=== PATIENT | female | born 1955 | race Caucasian/White ===

== ENCOUNTER 2018-05-25 15:07 | Emergency (ER) | payer OTHER ==
[~2018-05-25] VITALS: Ht 147.3 cm; Wt 69.8 kg
[2018-05-25 15:16] VITALS: TEMP 36.8; Ht 147.3 cm; Wt 69.8 kg
--- NOTE | 2018-05-25 15:29 | EMERGENCY ROOM VISIT NOTE ---
History Report prepared by Kayla: Logan Haywood Under the Supervision of: Dr. Blake Vaughan M.D. First contact with patient: 15:12 Chief Complaint: FALL Stated Complaint: FALL/ R SHOULDER, ARM PAIN History of Present Illness The patient is a 62 year old white female with a past history of HTN, acid reflux, and high cholesterol for which she takes medications as well as ASA who presents to the Emergency Room with complaints of a fall x1 hour ago causing right shoulder, neck, and arm pain. The patient states she was doing a tour of [employer] when her legs buckled and she fell. She states fell onto her right side against the stone wall. She states she has had a dull-aching pain to her right arm, shoulder, and neck since. She denies hitting her head or having LOC.The patient states she is left-handed. The patient states she is a former smoker, but quit x10 years ago.The patient notes she last ate at 1300. Source of History: patient Onset: x1 hour Position: shoulder (right), arm (right) Symptom Intensity: moderate Quality: ache Timing: constant Modifying Factors (Worsening): movement Modifying Factors (Relieving): rest Associated Symptoms: + neck pain, No LOC, No chest pain, No SOB, No back pain Review of Systems See HPI for pertinent positives and negatives. A total of ten systems were reviewed and were otherwise negative. Respiratory: No shortness of breath Cardiovascular: No chest pain Musculoskeletal: + problem reported (right neck, shoulder, and arm pain) Neurologic: + problem reported (no LOC) Past Medical & Surgical Medical Problems: (1) Acid reflux (2) High cholesterol (3) HTN (hypertension) Family History Patient reports no known family medical history. Social History Smoking Status: Former Smoker Alcohol Use: none Drug Use: none Marital Status: Housing Status: lives with significant other Current/Historical Medications Scheduled Ascorbic Acid (Vitamin C), 1 TAB PO DAILY Aspirin (Aspirin Ec), 81 MG PO DAILY Atorvastatin (Lipitor), 1 TAB PO DAILY Cholecalciferol (Vitamin D3), 1 TAB PO DAILY Ferrous Sulfate (Ferrous Sulfate), 325 MG PO DAILY Multiple Vitamins W/ Minerals (Centrum Silver Adult 50+), 1 TAB PO DAILY [Unknown BP Med], 1 TAB PO DAILY [Unknown Reflux Med], 1 TAB PO DAILY Scheduled PRN Albuterol Hfa (Ventolin Hfa), 2 PUFFS INH Q6H PRN for SOB/Wheezing Oxycodone/Acetaminophen 5MG/325MG (Percocet 5MG/325MG), 1 TAB PO Q4H PRN for Pain Allergies Coded Allergies: Morphine (Verified Allergy, Severe, Swelling of tongue, 05/25/18) Physical Exam Vital Signs Date Time Temp Pulse Resp B/P (MAP) Pulse Ox O2 Delivery O2 Flow Rate FiO2 05/25/18 16:44 84 18 140/66 94 Room Air 05/25/18 15:16 36.8 84 18 154/74 95 Room Air Physical Exam GENERAL: Awake, alert, well-appearing, NAD HENT: Normocephalic, atraumatic. EYES: Normal conjunctiva. Sclera non-icteric. PERRL. No anisocoria. NECK: No cervical midline TTP. Supple. No nuchal rigidity. FROM. RESPIRATORY: CTAB, no rhonchi, wheezing, crackles CARDIAC: RRR, no MRG ABDOMEN: Soft, NTND, BS+ MSK: Right clavicle intact. Pain to the right shoulder, humerous, and elbow. No pain to the right forearm, wrist, or hand. NVI distally M/U/R nerves. Hip intact. NEURO: GCS 15, CN 2-12 intact, moves all 4s on command SKIN: No rash or jaundice noted. Medical Decision & Procedures ER Provider Diagnostic Interpretation: Radiology results as stated below per my review and radiologist interpretation: SINGLE VIEW CHEST CLINICAL HISTORY: Fall. FINDINGS: A PA chest radiograph is obtained. No prior studies are available for comparison at the time of dictation. The heart appears mildly enlarged and there is atherosclerotic calcification of the thoracic aorta. The pulmonary vasculature is noncongested. There is bibasilar atelectasis. No airspace consolidation or large pleural effusion is identified. No pneumothorax is seen. The skeletal structures are osteopenic. The bony thorax is grossly intact. Degenerative change and scoliosis are noted in the thoracic spine. IMPRESSION: Mild cardiac enlargement with no acute cardiopulmonary abnormality. RIGHT ELBOW 2 VIEWS CLINICAL HISTORY: Fall with right arm injury. FINDINGS: PA and lateral views of the right elbow are obtained. No prior studies are available for comparison at the time of dictation. The skeletal structures are osteopenic. There is no radiographic evidence of right elbow fracture. The joint spaces are maintained. No joint effusion is identified. Degenerative spurring is noted along the medial joint space. Small enthesophytes arise from the humeral epicondyles. The overlying soft tissues are within normal limits. IMPRESSION: There is no radiographic evidence of right elbow fracture. RIGHT SHOULDER 3 VIEWS; RIGHT HUMERUS 2 VIEWS CLINICAL HISTORY: Fall with right arm injury. FINDINGS: 3 views of the right shoulder with AP and lateral views of the right humerus are obtained. No prior studies are available for comparison at the time of dictation. The skeletal structures are osteopenic. There is an impacted fracture of the right humeral neck which extends through the humeral head. There are small distracted fragments and overlying soft tissue edema. The remainder of the humerus is intact. No additional fracture is seen at the shoulder joint. The glenohumeral articulation is preserved. Productive degenerative change is noted at the acromioclavicular joint. The elbow joint is grossly maintained. The visualized right lung parenchyma appears clear. IMPRESSION: 1. There is an impacted fracture of the right humeral neck which extends through the humeral head as above. 2. The remainder of the humerus appears intact. 3. No additional fracture is identified at the shoulder joint. RIGHT SHOULDER 3 VIEWS; RIGHT HUMERUS 2 VIEWS CLINICAL HISTORY: Fall with right arm injury. FINDINGS: 3 views of the right shoulder with AP and lateral views of the right humerus are obtained. No prior studies are available for comparison at the time of dictation. The skeletal structures are osteopenic. There is an impacted fracture of the right humeral neck which extends through the humeral head. There are small distracted fragments and overlying soft tissue edema. The remainder of the humerus is intact. No additional fracture is seen at the shoulder joint. The glenohumeral articulation is preserved. Productive degenerative change is noted at the acromioclavicular joint. The elbow joint is grossly maintained. The visualized right lung parenchyma appears clear. IMPRESSION: 1. There is an impacted fracture of the right humeral neck which extends through the humeral head as above. 2. The remainder of the humerus appears intact. 3. No additional fracture is identified at the shoulder joint. Medications Administered Medications (Trade) Dose Ordered Sig/Heather Route Start Time Stop Time Status Last Admin Dose Admin Fentanyl Citrate (Fentanyl Inj) 75 mcg NOW ONCE IV 05/25/18 15:30 05/25/18 15:33 DC 05/25/18 15:44 75 MCG Acetaminophen (Tylenol Tab) 650 mg NOW STAT PO 05/25/18 15:30 05/25/18 15:33 DC 05/25/18 15:44 650 MG Oxycodone/ Acetaminophen (Percocet 5-325mg Tab) 1 tab NOW STAT PO 05/25/18 17:11 05/25/18 17:12 DC 05/25/18 17:23 1 TAB Oxycodone/ Acetaminophen (Percocet 5/ 325MG Home Pack) 1 homepack UD ONCE PO 05/25/18 17:15 05/25/18 17:16 DC 05/25/18 17:15 1 HOMEPACK Ibuprofen (Advil Tab) 400 mg NOW STAT PO 05/25/18 17:11 05/25/18 17:12 DC 05/25/18 17:22 400 MG Medical Decision Nursing notes reviewed. Ancillary studies and prior records reviewed. The patient is a 62 year old white female with a past history of HTN, acid reflux, and high cholesterol for which she takes medications as well as ASA who presents to the Emergency Room with complaints of a fall x1 hour ago causing right shoulder, neck, and arm pain. Differential diagnosis: Etiologies such as fracture, dislocation, neurovascular compromise, compartment syndrome, soft tissue injury, as well as others were entertained. Patient was seen and evaluated the bedside. The patient does present status post fall. The patient had been dependence [facility] from the [facility] where she had a mechanical fall and fell onto her right shoulder. The patient did have pain thereafter. She does take a baby aspirin but does not take any of the blood thinning medications. Patient did not strike her head or neck and denies any numbness tingling or weakness. The patient did not have any LOC. Patient does have significant right upper extremity pain. She does have reduced range of motion secondary to pain but she is neurovascularly intact distally. Patient did have plain films completed and the patient was given medications for pain control. Patient does have an impacted humeral head fracture. I did discuss with the patient and family member that these are likely treated conservatively with follow-up with her PCP and orthopedist as needed. Patient was given additional pain medication for home and was told to follow-up with her PCP. The patient does have a PCP follow-up tomorrow. Patient was placed in a sling. I did speak with the telephonic nurse case manager in order to have her imaging placed on a disc for her to take to her appointment for further review. Patient was given strict follow-up, discharge, and return precautions. All questions were answered. Patient was deemed suitable for outpatient follow-up at this time. Patient agreed with the plan of care and was safely discharged home. Medication Reconcilliation Current Medication List: was personally reviewed by me Blood Pressure Screening Patient's blood pressure: Elevated blood pressure Blood pressure disposition: Referred to PCP Impression Primary Impression: Humeral head fracture Additional Impressions: Fall Arm pain Scribe Attestation The scribe's documentation has been prepared under my direction and personally reviewed by me in its entirety. I confirm that the note above accurately reflects all work, treatment, procedures, and medical decision making performed by me. Departure Information Dispostion Home / Self-Care Prescriptions Oxycodone/Acetaminophen 5MG/325MG (PERCOCET 5MG/325MG) Tab 1 TAB PO Q4H Y for Pain, #20 TAB Prov: Blake Vaughan M.D. 05/25/18 Patient Instructions ED Sling, Humerus Fx, My [facility] Additional Instructions Please return to the emergency department if you have worsening or recurrent symptoms not amenable to at-home treatment. Please call for a follow-up appointment with her primary care physician. Please take your medications as prescribed. If you have other concerns and/or complaints please feel free to also call your primary care physician's office or return the ED for further evaluation, management, and treatment. You were found to have an elevated blood pressure today (>120 sytolic or >90 diastolic). Per medicare guidelines, you need to follow up with this blood pressure screening with your Primary Care Physician (PCP). For a new PCP call [phone]. You received narcotic or benzodiazepene medication while in the emergency room today. This is an addictive medication that may cause drowziness as well as constipation. Do not drive, operate heavy machinery, or drink alcohol under the influence of this medication. You may take 400 mg Ibuprofen every 6 hours as needed for pain/fever with food unless told by your physician not to take NSAIDs. You may take tylenol 650 mg every 6 hours as needed for pain/fever unless told by your physician to not take it or have liver problems. You may take motrin and tylenol separately or at the same time. Take your medications as prescribed. If you still have discomfort you may take the narcotic medication. Please be advised that these medications are habit forming, can make you sleepy, and can cause breathing issues. Do not use if you require your full attention. Take only as prescribed. Please keep your arm in a sling for comfort and follow-up with your PCP and/or orthopedist as needed. You have been examined and treated today on an emergency basis only. This is not a substitute for, or an effort to provide, complete comprehensive medical care. It is impossible to recognize and treat all injuries or illnesses in a single emergency department visit. It is therefore important that you follow up closely with [facility], your PCP, and/or your specialist(s). Call as soon as possible for an appointment. Thank you for your time and consideration. I look forward to speaking with you again soon. Please don't hesitate to call us if you have any questions. Problem Qualifiers Primary Impression: Humeral head fracture Encounter type: initial encounter Fracture type: closed Laterality: right Qualified Codes: S42.291A - Other displaced fracture of upper end of right humerus, initial encounter for closed fracture Additional Impressions: Fall Encounter type: initial encounter Qualified Codes: W19.XXXA - Unspecified fall, initial encounter Arm pain Laterality: right Qualified Codes: M79.601 - Pain in right arm
[2018-05-25] MEDS ORDERED: ACETAMINOPHEN 325 MG TAB PO STA (15:30)
[2018-05-25] MEDS ORDERED: FENTANYL CITRATE INJ 50 MCG/1 ML 2 ML VIAL IV ONE (15:30)
[2018-05-25] MEDS ORDERED: [UNRECOGNIZED DRUG - REMARK] PO (16:21)
[2018-05-25] MEDS ORDERED: VNTHFA/IN INH (16:21)
[2018-05-25] MEDS ORDERED: ATOR10TA82 PO (16:21)
[2018-05-25] MEDS ORDERED: ASPI81TA28 PO (16:21)
[2018-05-25] MEDS ORDERED: FERR325T5 PO (16:21)
[2018-05-25] MEDS ORDERED: CHOL1000 PO (16:21)
[2018-05-25] MEDS ORDERED: MULT-845 PO (16:21)
[2018-05-25] MEDS ORDERED: ASCO500T3 PO (16:21)
[2018-05-25] MEDS ORDERED: [UNRECOGNIZED DRUG - REMARK] PO (16:22)
--- NOTE | 2018-05-25 16:37 | DIAGNOSTIC IMAGING REPORT ---
RIGHT SHOULDER 3 VIEWS; RIGHT HUMERUS 2 VIEWS CLINICAL HISTORY: Fall with right arm injury. FINDINGS: 3 views of the right shoulder with AP and lateral views of the right humerus are obtained. No prior studies are available for comparison at the time of dictation. The skeletal structures are osteopenic. There is an impacted fracture of the right humeral neck which extends through the humeral head. There are small distracted fragments and overlying soft tissue edema. The remainder of the humerus is intact. No additional fracture is seen at the shoulder joint. The glenohumeral articulation is preserved. Productive degenerative change is noted at the acromioclavicular joint. The elbow joint is grossly maintained. The visualized right lung parenchyma appears clear. IMPRESSION: 1. There is an impacted fracture of the right humeral neck which extends through the humeral head as above. 2. The remainder of the humerus appears intact. 3. No additional fracture is identified at the shoulder joint. Electronically signed by: Alejandro Mixon M.D. 05/25/2018 4:36 PM Dictated Date/Time: 05/25/2018 4:34 PM
--- NOTE | 2018-05-25 16:39 | DIAGNOSTIC IMAGING REPORT ---
RIGHT ELBOW 2 VIEWS CLINICAL HISTORY: Fall with right arm injury. FINDINGS: PA and lateral views of the right elbow are obtained. No prior studies are available for comparison at the time of dictation. The skeletal structures are osteopenic. There is no radiographic evidence of right elbow fracture. The joint spaces are maintained. No joint effusion is identified. Degenerative spurring is noted along the medial joint space. Small enthesophytes arise from the humeral epicondyles. The overlying soft tissues are within normal limits. IMPRESSION: There is no radiographic evidence of right elbow fracture. Electronically signed by: Alejandro Mixon M.D. 05/25/2018 4:38 PM Dictated Date/Time: 05/25/2018 4:37 PM
--- NOTE | 2018-05-25 16:40 | DIAGNOSTIC IMAGING REPORT ---
SINGLE VIEW CHEST CLINICAL HISTORY: Fall. FINDINGS: A PA chest radiograph is obtained. No prior studies are available for comparison at the time of dictation. The heart appears mildly enlarged and there is atherosclerotic calcification of the thoracic aorta. The pulmonary vasculature is noncongested. There is bibasilar atelectasis. No airspace consolidation or large pleural effusion is identified. No pneumothorax is seen. The skeletal structures are osteopenic. The bony thorax is grossly intact. Degenerative change and scoliosis are noted in the thoracic spine. IMPRESSION: Mild cardiac enlargement with no acute cardiopulmonary abnormality. Electronically signed by: Alejandro Mixon M.D. 05/25/2018 4:39 PM Dictated Date/Time: 05/25/2018 4:38 PM
[2018-05-25 16:44] VITALS: BP 140/66; PULSE 84; O2SAT 94
[2018-05-25] MEDS ORDERED: OXYCODONE/ACETAMINOPHEN 5-325 TAB PO STA (17:11)
[2018-05-25] MEDS ORDERED: IBUPROFEN 200 MG TAB PO STA (17:11)
[2018-05-25] MEDS ORDERED: OXYC-57 PO (17:13)
[2018-05-25] MEDS ORDERED: PERCOCET HOME PACK PO ONE (17:15)
== END 2018-05-25 17:40 | disposition home or self-care (01) ==
LOC: C.EDC 15:09
DX: S42.291A Other displaced fracture of upper end of right humerus, initial encounter for closed fracture (principal); M79.601 Pain in right arm; W19.XXXA Unspecified fall, initial encounter; Y92.89 Other specified places as the place of occurrence of the external cause; K21.9 Gastro-esophageal reflux disease without esophagitis; E78.00 Pure hypercholesterolemia, unspecified; I10 Essential (primary) hypertension; Z87.891 Personal history of nicotine dependence; Z79.82 Long term (current) use of aspirin; Z79.899 Other long term (current) drug therapy; Z88.5 Allergy status to narcotic agent